=== PATIENT | female | born 2000 | race Caucasian/White ===

== ENCOUNTER 2021-10-01 13:00 | Inpatient (IN) ==
[2021-10-01] MEDS ORDERED: Lidocaine 1% 20 ML MDV INFILT PRN (14:34)
[2021-10-01] MEDS ORDERED: Metoclopramide 10 MG/2 ML VIAL IVP PRN (14:34)
[2021-10-01] MEDS ORDERED: Famotidine 20 MG/2 ML VIAL IVP PRN (14:34)
[2021-10-01] MEDS ORDERED: *HR* Nalbuphine 10 MG/ML AMPUL IV PRN (14:34)
[2021-10-01 15:08] LABS: Basophils % 0.3 %; Eosinophils # 0.1 K/mcL (0.0-0.6); Eosinophils % 1.3 %; Hemoglobin 12.8 g/dL (11.5-15.4); Lymphocytes # 1.8 K/mcL (0.6-4.6); Mean Corpuscular HGB Conc 33.7 g/dL (31.6-35.5); Mean Corpuscular Volume 89.2 fL (83.0-100.0); Mean Platelet Volume 10.1 fL (9.4-12.4); Monocytes # 0.7 K/mcL (0.0-1.3); Monocytes % 6.5 %; Neutrophils # 7.5 K/mcL (1.6-8.9); Platelet Count 246 K/mcL (140-400); Red Blood Count 4.26 M/mcL (3.82-4.97); Red Cell Distribution Width 12.7 % (11.5-14.5); Segmented Neutrophils % 72.9 %; White Blood Count 10.2 K/mcL (4.3-11.1)
[2021-10-01 15:20] LABS: Amphetamine Screen,Urine Negative ng/mL (Cutoff=1000); Barbiturate Screen,Urine Negative ng/mL (Cutoff=200); Benzodiazepines Screen,Urine Negative ng/mL (Cutoff=200); Cannabinoid Screen,Urine Negative ng/mL (Cutoff = 50); Cocaine Screen,Urine Negative ng/mL (Cutoff= 300); Creatinine,Urine 166 mg/dL; Opiate Screen,Urine Negative ng/mL (Cutoff=300); Phencyclidine Screen,Urine Negative ng/mL (Cutoff=25); Protein/Creatinine Ratio,Urine 0.34 mg/mg (0.00-0.20)
[2021-10-01 15:25] LABS: Alanine Aminotransferase 13 Units/L (7-52); Aspartate Amino Transferase 11 Units/L (13-39); BUN/Creatinine Ratio 16 (6-26); Blood Urea Nitrogen 8 mg/dL (6-20); Lactate Dehydrogenase 137 Units/L (140-271); Uric Acid 6.7 mg/dL (2.3-7.6); eGFR For African Americans > 60 (> 60); eGFR For Non-African Americans > 60 (> 60)
[2021-10-01 15:56] LABS: Influenza A PCR Negative (Negative); Influenza B PCR Negative (Negative); Resp. Syncytial Virus PCR Negative (Negative)
[2021-10-01 15:59] LABS: SARS-CoV-2 by PCR (In House) Positive (Negative)
[2021-10-01] MEDS ORDERED: EPHEDrine 50 MG/ML VIAL IVP PRN (16:02)
[2021-10-01] MEDS ORDERED: miSOPROStoL 25 MCG TABLET PO PRN (17:28)
[2021-10-01] MEDS: Ondansetron 4 MG/2 ML VIAL IVP PRN (22:32)
[2021-10-01] MEDS: Ringers Solution, Lactated 1,000 ML IVC SCH (23:38)
[2021-10-02] MEDS: Ringers Solution, Lactated 1,000 ML IVC SCH ×3 (03:00→22:05)
[2021-10-02] MEDS: Epidural Premix (fent/bupiv) 110 ML EP SCH ×3 (06:10→22:07)
[2021-10-02] MEDS: Oxytocin 20 units/ LR 1000 mL 20 UNIT/1,000 ML BAG IVC SCH (09:15)
[2021-10-02] MEDS: Ondansetron 4 MG/2 ML VIAL IVP PRN (15:05)
[2021-10-02] MEDS ORDERED: Ropivacaine/PF 0.2% 20 ML VIAL ONE (17:16)
[2021-10-03] MEDS: Epidural Premix (fent/bupiv) 110 ML EP SCH ×3 (03:21→15:02)
[2021-10-03] MEDS: Ondansetron 4 MG/2 ML VIAL IVP PRN (08:42)
[2021-10-03] MEDS: Ringers Solution, Lactated 1,000 ML IVC SCH (08:42)
[2021-10-03] MEDS ORDERED: ceFAZolin 3,000 MG in 0.9 % Sodium Chloride 100 ML IVPB ONE (10:03)
[2021-10-03] MEDS ORDERED: Azithromycin 500 MG in 0.9 % Sodium Chloride 250 ML IVPB ONE (10:04)
[2021-10-03] MEDS ORDERED: Penicillin G Potassium 5,000,000 UNIT in 0.9 % Sodium Chloride Mini Bag 100 ML IVPB ONE (11:00)
[2021-10-03] MEDS ORDERED: Penicillin G Potassium 2,500,000 UNIT/105 ML MLS IVPB SCH ×2 (15:30→17:00)
[2021-10-03] MEDS: Oxytocin 20 units/ LR 1000 mL 20 UNIT/1,000 ML BAG IVC SCH (19:34)
[2021-10-03] MEDS ORDERED: Benzocaine/Menthol 56 GM AEROSOL SPRAY TP PRN (19:36)
[2021-10-03] MEDS ORDERED: Oxytocin 20 units/ LR 1000 mL 20 UNIT/1,000 ML BAG IVC SCH (19:36)
[2021-10-03] MEDS ORDERED: *HR* OxyCODONE Immed Rel 5 MG TABLET PO PRN (19:36)
[2021-10-03] MEDS ORDERED: Ondansetron ODT 4 MG TAB.RAPDIS SL PRN (19:36)
[2021-10-03] MEDS ORDERED: Lanolin 7 G OINT...G. TP PRN (19:36)
[2021-10-03] MEDS: Acetaminophen 325 MG TABLET PO SCH (20:28)
[2021-10-03] MEDS: Ibuprofen 600 MG TABLET PO SCH (20:28)
[2021-10-04 00:12] VITALS: TEMP 97.5; O2SAT 97
[2021-10-04] MEDS: Ibuprofen 600 MG TABLET PO SCH ×2 (04:14→10:04)
[2021-10-04] MEDS: Acetaminophen 325 MG TABLET PO SCH ×2 (04:14→10:05)
[2021-10-04 04:53] VITALS: BP 128/82; PULSE 93
[2021-10-04 04:55] LABS: Eosinophils % 0.9 %; Hematocrit 29.4 % (35.3-44.9); Immature Granulocytes % 0.6 % (0-4); Lymphocytes % 16.2 %; Mean Corpuscular HGB Conc 33.3 g/dL (31.6-35.5); Mean Corpuscular Hemoglobin 29.8 pg (28.0-33.3); Mean Corpuscular Volume 89.4 fL (83.0-100.0); Mean Platelet Volume 10.2 fL (9.4-12.4); Monocytes % 9.3 %; Platelet Count 183 K/mcL (140-400); Red Blood Count 3.29 M/mcL (3.82-4.97); Red Cell Distribution Width 12.7 % (11.5-14.5); Segmented Neutrophils % 72.7 %; White Blood Count 10.4 K/mcL (4.3-11.1)
[2021-10-04 04:56] LABS: Basophils % 0.3 %; Eosinophils # 0.1 K/mcL (0.0-0.6); Lymphocytes # 1.7 K/mcL (0.6-4.6); Neutrophils # 7.6 K/mcL (1.6-8.9)
[2021-10-04 04:58] LABS: Hemoglobin 9.8 g/dL (11.5-15.4)
[2021-10-04] MEDS ORDERED: Etonogestrel 68 MG IMPLANT IL ONE (08:12)
[2021-10-04] MEDS ORDERED: Lidocaine 1% 20 ML MDV ID ONE (08:12)
[2021-10-04] MEDS ORDERED: *HR* Enoxaparin 40 MG/0.4 ML SYRINGE SQ SCH (08:22)
[2021-10-04] MEDS ORDERED: Prenatal Vit/FA 1 EACH TABLET PO SCH (09:00)
== END 2021-10-04 12:00 | disposition home or self-care (01) | DRG 805 ==
LOC: 1NENULAB 13:00 → 1NENUOBS 10-03 19:44
PROVIDERS: ADMIT Student in an Organized Health Care Education/Training Program; ATTEND Student in an Organized Health Care Education/Training Program